=== PATIENT | female | born 1985 | race Hispanic/Latino ===

== ENCOUNTER 2024-11-05 18:18 | Emergency (ER) | payer OTHER ==
[~2024-11-05] VITALS: Ht 157.5 cm; Wt 155.1 kg
[2024-11-05 18:43] VITALS: TEMP 98.7
[2024-11-05 19:27] VITALS: PULSE 86; RESP 18
[2024-11-05] MEDS ORDERED: NAPROSYN500 MG PO (21:34)
[2024-11-05 21:42] VITALS: BP 134/71; PULSE 86; RESP 16; O2SAT 100
== END 2024-11-05 21:45 | disposition home or self-care (01) ==
LOC: ER 19:16
DX: M25.562 Pain in left knee (principal); G40.909 Epilepsy, unspecified, not intractable, without status epilepticus
CPT/HCPCS: 93971; 99283